=== PATIENT | male | born 1965 ===

== ENCOUNTER 2018-10-08 18:14 | Emergency (ER) | payer OTHER ==
[~2018-10-08] VITALS: Ht 175.3 cm; Wt 102.1 kg
[2018-10-08] MEDS ORDERED: [UNRECOGNIZED DRUG - OTHER] (19:04)
[2018-10-09] MEDS ORDERED: MEDROLPACK PO (00:08)
[2018-10-09] MEDS ORDERED: PROMETHAZINE D118 ML PO (00:08)
[2018-10-09] MEDS ORDERED: VENTOLIN HFA18 GM IH (00:08)
== END 2018-10-09 01:20 | disposition home or self-care (01) ==
LOC: ER 18:14
DX: J98.01 Acute bronchospasm (principal)